=== PATIENT | female | born 1965 | race Caucasian/White ===

== ENCOUNTER 2018-09-08 14:35 | Emergency (ER) | payer MEDICAID, OTHER ==
[~2018-09-08] VITALS: Ht 160 cm; Wt 96.2 kg
[2018-09-08 16:45] LABS: Basophils # (auto) 0.1 uL; Basophils % (auto) 0.9 % (0.0-2.0); Eosinophils # (auto) 0.1 uL; Eosinophils % (auto) 0.8 % (0.0-7.0); Hematocrit 41.3 % (36.0-46.0); Hemoglobin 13.9 g/dL (12.2-16.2); Lymphocytes # (auto) 0.9 uL; Lymphocytes % (auto) 14.3 % (10.0-50.0); Mean Corpuscular Hemoglobin 31.4 pg (28.0-32.0); Mean Corpuscular Hgb Conc. 33.7 g/dL (32.0-36.0); Mean Corpuscular Volume 93.3 fL (80.0-100.0); Monocytes # (auto) 0.5 uL; Platelet Count (auto) 253 10^3/uL (140-450); Red Blood Cells 4.42 10^6/uL (4.0-5.20); Red Cell Distribution Width 14.4 % (11.8-14.3); White Blood Cell 6.5 10^3/uL (4.4-10.8)
[2018-09-08 16:57] LABS: Alanine Aminotransferase 104 U/L (13-56); Albumin 4.1 g/dL (3.4-5.0); Anion Gap 7 (5-15); Blood Urea Nitrogen 13 mg/dL (7-18); Calcium 9.1 mg/dL (8.5-10.1); Carbon Dioxide 23 mmol/L (21-32); Chloride 110 mmol/L (98-107); Glucose 92 mg/dL (74-106); Sodium 140 mmol/L (136-145)
[2018-09-08 17:02] LABS: Alkaline Phosphatase 87 U/L (45-117); Aspartate Aminotransferase 66 U/L (15-37); BUN/Creatinine Ratio 14.9; Bilirubin, Total 0.9 mg/dL (0.2-1.0); GFR African American 87 mL/min; GFR Non-African American 72 mL/min; Total Protein 8.7 g/dL (6.4-8.2)
[2018-09-08 20:32] LABS: Urine Bacteria FEW /hpf (None Seen); Urine Blood Negative /uL (Negative); Urine Mucus FEW (None Seen); Urine Specific Gravity 1.011 (1.001-1.035); Urine WBC 4 /hpf (0 - 5)
[2018-09-08 20:38] LABS: INR 0.93 (0.9-1.15); Partial Thromboplastin Time 31.7 sec (23.78-33.04)
[2018-09-08 21:39] VITALS: BP 149/92
== END 2018-09-08 22:54 | disposition left against medical advice (07) ==
LOC: ER 14:35 → EDUNIT# 14:35 → EDBD 14:35 → ER 22:54
DX: D35.2 Benign neoplasm of pituitary gland (principal); R55 Syncope and collapse; R07.9 Chest pain, unspecified; R42 Dizziness and giddiness; E78.5 Hyperlipidemia, unspecified; I10 Essential (primary) hypertension; Z90.49 Acquired absence of other specified parts of digestive tract
CPT/HCPCS: 36415; 70450; 71045; 80053; 81001; 83735; 84484; 85025; 85379; 85610; 85730; 93005; 94761